=== PATIENT | male | born 1975 | race Caucasian/White ===

== ENCOUNTER → 2021-02-21 14:50 | Outpatient (BNVA) | payer OTHER, SELFPAY | PROVIDERS: Visit Provider Specialist | DX: M25.561 Pain in right knee (principal); M25.562 Pain in left knee | CPT/HCPCS: 73560; 73565 ==

== ENCOUNTER 2021-04-06 08:21 | Outpatient (CLI) | payer OTHER, SELFPAY ==
--- NOTE | 2021-04-06 08:27 | MR_ITS ---
WS: [id number] MRI RIGHT KNEE NONCONTRAST TECHNIQUE: Axial PD, coronal PD fat sat, coronal PD, sagittal PD, and sagittal PD fat-sat images obta ined. CLINICAL INFORMATION: M25.569 - Pain in unspecified knee COMPARISON: None. FINDINGS: Distal quadriceps and patella tendons are intact. Small suprapatellar effusion. Normal ACL and PCL. M ild chronic thinning of the medial meniscus. No acute appearing meniscal tears. Mild degenerative gillian rowing involving the medial joint compartment with mild grade 2 chondromalacia. No subchondral edema. Tiny meniscal cyst along the posterior horn lateral meniscus. No adjacent meniscal tears. Small cyst measures 6 x 7 mm. Normal patella. No significant chondromalacia patella. No subchondral edema. Normal medial and latera l patellar retinaculum. Normal popliteal fossa. Normal soft tissues. MR/MR knee RT wo con* [id number] IMPRESSION: 1. Normal ACL and PCL. 2. No acute appearing meniscal tears. Mild chronic thinning of the medial meni scus. 3. Small cyst along the posterior horn lateral malleolus measuring 6 x 8 mm. N o adjacent meniscal tears. 4. Small suprapatellar effusion. 5. Grade II chondromalacia involving the medial joint compartment with chondra l fissuring. No subchondral edema. 6. Normal MCL and LCL. Outbridge grading: grade II: blister-like swelling/fraying of articular cartila ge extending to surface
== END 2021-04-06 08:22 | disposition home or self-care (01) ==
LOC: RAD 08:24
PROVIDERS: Visit Provider Specialist
DX: M25.461 Effusion, right knee (principal); M94.261 Chondromalacia, right knee
CPT/HCPCS: 73721

== ENCOUNTER → 2022-09-04 11:16 | Outpatient (BNVA) | payer OTHER, SELFPAY | PROVIDERS: Visit Provider Internal Medicine Cardiovascular Disease | DX: R00.2 Palpitations (principal) | CPT/HCPCS: 93225 ==